=== PATIENT | male | born 1980 | race Caucasian/White ===

== ENCOUNTER 2022-03-08 11:57 | Outpatient (CLI) | payer OTHER, SELFPAY ==
[2022-03-08 21:24] LABS: Albumin* 4.3 g/dL (3.3-5.0); Chloride* 102 mmol/L (96-114); Potassium* 4.3 mmol/L (3.6-5.1); Sodium* 140 mmol/L (135-149)
[2022-03-08 22:18] LABS: Alanine Aminotransferase* 35 U/L (4-50); Aspartate Amino Transferase* 32 U/L (12-35); Bilirubin Total* 0.7 mg/dL (0.1-1.5); Blood Urea Nitrogen* 17 mg/dL (5-24); Carbon Dioxide* 28 mmol/L (20-32); Creatinine* 1.1 mg/dL (0.5-1.5); Estimated Glomerular Filt Rate 88 ml/min; Glucose* 89 mg/dL (60-115); Lipase* 50 U/L (23-300)
[2022-03-08 23:32] LABS: Alkaline Phosphatase* 79 U/L (40-150); Calcium* 9.4 mg/dL (8.4-10.6); Total Protein* 7.3 g/dL (6.0-8.3)
== END 2022-03-08 11:58 | disposition home or self-care (01) ==
PROVIDERS: PCP Physician Assistant Medical; Visit Provider Physician Assistant Medical
DX: R10.11 Right upper quadrant pain (principal)
CPT/HCPCS: 80053; 83690

== ENCOUNTER 2022-03-30 11:40 | Outpatient (CLI) | payer OTHER, SELFPAY ==
--- NOTE | 2022-03-30 12:00 | CRLHL7_ITS ---
For Patients: As a result of the Century Cures Act, medical imaging exams and procedure reports are released immediately into your electronic medical record. You may view this report before your referring provider. If you have questions, please contact your health care provider. INDICATION: Right upper quadrant abdominal pain. Family history of gallbladder disease. TECHNIQUE: 5.2 mCi Tc-99m labeled Mebrofenin. 2.3 mcg CCK, IV. FINDINGS: Normal uptake and excretion of tracer by the liver. Activity is promptly identified within the extrahepatic biliary tree within 5 minutes after injection. Delayed filling of the gallbladder seen initially between 35 and 40 minutes. The gallbladder does continue to fill up to 55 minutes. After the administration of CCK, the gallbladder ejection fraction is calculated at 55 percent which is within normal limits. IMPRESSION: 1. No evidence for cystic duct or common duct obstruction. No biliary leak. 2. Normal gallbladder ejection fraction of 55 percent. 3. No evidence for biliary dyskinesia or chronic cholecystitis. Dictated by Aldo Loza MD @ 03/30/2022 2:33:48 PM (Electronically Signed)
== END 2022-03-30 11:41 | disposition home or self-care (01) ==
PROVIDERS: PCP Physician Assistant Medical; Visit Provider Physician Assistant Medical
DX: R10.11 Right upper quadrant pain (principal)
CPT/HCPCS: 78227; A9537; J2805